=== PATIENT | male | born 1965 | race Caucasian/White ===

== ENCOUNTER → 2016-09-04 | Outpatient (CLI) | payer OTHER ==
[~2016-09-04] MED LIST: CLON1TAB3 PO; GEMF600T3 PO; KLONOPIN PO; LEVO75TA5 PO; LEVO88TA22 PO; MULT-506 PO; OLAN10TA11 PO; PRLSR20 PO; UNABLE
[2016-09-04 12:31] LABS: CALCIUM 9.5 mg/dl (8.5-10.1)
[2016-09-04 12:37] LABS: BLOOD UREA NITROGEN 10 mg/dl (7-18); BUN/CREATININE RATIO 9.4 (10-20); CARBON DIOXIDE 25 mmol/L (21-32); CHLORIDE 106 mmol/L (98-107); CHOLESTEROL 167 mg/dl (0-200); GLUCOSE 102 mg/dl (70-99); SODIUM 139 mmol/L (136-145)
[2016-09-04 12:47] LABS: CHOLESTEROL/HDL RATIO 5.8; HDL CHOLESTEROL 29 mg/dl; LDL CHOLESTEROL CALCULATED 77 mg/dl; TRIGLYCERIDES 303 mg/dl (0-150); VERY LOW DENSITY LIPOPROT CALC 61 mg/dl
== END | disposition home or self-care (01) ==
LOC: C.LABPVFM 08:54
PROVIDERS: ATTEND Nurse Practitioner
DX: E78.2 Mixed hyperlipidemia (principal); E03.9 Hypothyroidism, unspecified

== ENCOUNTER 2016-12-17 17:23 | Emergency (ER) | payer OTHER ==
[~2016-12-17] VITALS: Ht 177.8 cm; Wt 112.0 kg
[~2016-12-17 17:23] MED LIST changes: -CLON1TAB3 PO; -LEVO75TA5 PO
[2016-12-17 17:26] VITALS: TEMP 36.4; Ht 177.8 cm; Wt 112.0 kg
--- NOTE | 2016-12-17 17:46 | EMERGENCY ROOM VISIT NOTE ---
History Report prepared by Scribe: Lisset Grady Under the Supervision of: Dr. Rc Sinclair M.D. First contact with patient: 17:32 Chief Complaint: CARDIAC ASSESSMENT Stated Complaint: CHEST PAIN History of Present Illness The patient is a 51 year old male who presents to the Emergency Room with complaints of intermittent chest pain for the past 1 month. He is accompanied by his Mother. He reports last month he was mowing his lawn when his pain first started. He rates his current discomfort as a 1/10 and notes it radiates into his left arm. The pain usually lasts for "a couple of minutes". Two days ago, he experienced a headache. Earlier today, the patient was mowing his lawn when his pain came back. He saw his PCP, Dr. Dodd at [facility], this afternoon and after getting a chest X-Ray and EKG, he was referred to the ED for further evaluation. He is a non-smoker but states he does use chewing tobacco. He denies any recent shortness of breath, jaw pain, back pain, nausea, vomiting, or pain or swelling in his legs. He denies any recent traumatic injuries or falls. The patient's Mother reports there is a family history of bypass surgery and heart disease in his Father. 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 A total of 10 systems reviewed and were otherwise negative. Past Medical & Surgical Medical Problems: (1) Hyperlipemia Old medical records were reviewed. Nurse's notes were reviewed and I agree with. Family History Coronary artery disease in father Heart disease Social History Smoking Status: Never Smoker Smokeless Tobacco Use: Yes Alcohol Use: none Drug Use: none Marital Status: single Housing Status: lives with family Occupation Status: unemployed Current/Historical Medications Scheduled Clonazepam (Klonopin), 1 MG PO HS Gemfibrozil (Lopid), 600 MG PO BID Levothyroxine Sodium (Levothyroxine Sodium), 1 TAB PO DAILY Multivitamin (Multivitamin), 1 TAB PO DAILY Olanzapine (Zyprexa), 10 MG PO HS Omeprazole (Prilosec), 20 MG PO DAILY Allergies Coded Allergies: Aspirin (Unverified Allergy, Unknown, UNKNOWN, 12/17/16) Physical Exam Vital Signs Date Time Temp Pulse Resp B/P (MAP) Pulse Ox O2 Delivery O2 Flow Rate FiO2 12/17/16 20:26 86 18 132/94 93 Room Air 12/17/16 18:30 89 20 127/88 94 12/17/16 18:00 88 20 135/91 90 12/17/16 17:52 90 29 126/90 92 Room Air 12/17/16 17:44 91 12/17/16 17:26 36.4 98 20 118/87 96 Physical Exam General: The patient is a non-ill appearing middle aged male. Well developed, well nourished in no acute distress, breathing comfortably on room air. Normal speech HEENT: Normal cephalic atraumatic. Pupils are equal round and reactive to light. Extraocular movements are intact. Oropharynx is pink with moist mucous membranes. No swelling of the mouth lips or tongue. Neck: Supple with a midline trachea. No meningeal signs or stiffness, no JVD or bruits. No Stridor. Chest: Clear to auscultation bilaterally. No wheezes or rhonchi. No increased work of breathing. Heart: regular rate and rhythm. Abdomen: Soft nontender, nondistended without rebound guarding or rigidity. Extremities: No cyanosis clubbing or edema. No calf tenderness or assymetry Spine/Back. Non tender to palpation. No CVA tenderness Skin: Good turgor without rashes. Neurologic exam: Cranial nerves two through 12 are intact. Motor and sensation are intact and symmetrical throughout. Medical Decision & Procedures ER Provider Diagnostic Interpretation: Radiology results as stated below per my review and radiologist interpretation: CHEST 2 VIEWS ROUTINE CLINICAL HISTORY: MIXED HYPERLIPIDEMIA CHEST AND LEFT ARM PAIN COMPARISON STUDY: 07/13/2015 FINDINGS: The heart is borderline enlarged. There is no failure. There is no lobar consolidation. There are no pleural effusions. There is minor left basilar atelectasis/scarring. IMPRESSION: No active disease in the chest. Electronically signed by: Shade Rivas M.D. 12/17/2016 3:57 PM Laboratory Results 12/17/16 17:50 Red Blood Count 5.04, Mean Corpuscular Volume 92.7, Mean Corpuscular Hemoglobin 31.2, Mean Corpuscular Hemoglobin Concent 33.6, Mean Platelet Volume 9.6, Neutrophils (%) (Auto) 65.4, Lymphocytes (%) (Auto) 26.7, Monocytes (%) (Auto) 7.0, Eosinophils (%) (Auto) 0.0, Basophils (%) (Auto) 0.2, Neutrophils # (Auto) 2.81, Lymphocytes # (Auto) 1.15, Monocytes # (Auto) 0.30, Eosinophils # (Auto) 0.00, Basophils # (Auto) 0.01 12/17/16 17:50 Test 12/17/16 17:50 12/17/16 17:55 White Blood Count 4.30 K/uL (4.8-10.8) Red Blood Count 5.04 M/uL (4.7-6.1) Hemoglobin 15.7 g/dL (14.0-18.0) Hematocrit 46.7 % (42-52) Mean Corpuscular Volume 92.7 fL (80-100) Mean Corpuscular Hemoglobin 31.2 pg (25-34) Mean Corpuscular Hemoglobin Concent 33.6 g/dl (32-36) Platelet Count 215 K/uL (130-400) Mean Platelet Volume 9.6 fL (7.4-10.4) Neutrophils (%) (Auto) 65.4 % Lymphocytes (%) (Auto) 26.7 % Monocytes (%) (Auto) 7.0 % Eosinophils (%) (Auto) 0.0 % Basophils (%) (Auto) 0.2 % Neutrophils # (Auto) 2.81 K/uL (1.4-6.5) Lymphocytes # (Auto) 1.15 K/uL (1.2-3.4) Monocytes # (Auto) 0.30 K/uL (0.11-0.59) Eosinophils # (Auto) 0.00 K/uL (0-0.5) Basophils # (Auto) 0.01 K/uL (0-0.2) RDW Standard Deviation 48.8 fL (36.4-46.3) RDW Coefficient of Variation 14.4 % (11.5-14.5) Immature Granulocyte % (Auto) 0.7 % Immature Granulocyte # (Auto) 0.03 K/uL (0.00-0.02) Anion Gap 8.0 mmol/L (3-11) Est Creatinine Clear Calc Drug Dose 82.4 ml/min Estimated GFR () 72.2 Estimated GFR (Non- 62.3 BUN/Creatinine Ratio 12.0 (10-20) Calcium Level 9.0 mg/dl (8.5-10.1) Total Bilirubin 0.6 mg/dl (0.2-1) Direct Bilirubin 0.1 mg/dl (0-0.2) Aspartate Amino Transf (AST/SGOT) 51 U/L (15-37) Alanine Aminotransferase (ALT/SGPT) 57 U/L (12-78) Alkaline Phosphatase 52 U/L (45-117) Total Creatine Kinase 1129 U/L (39-308) Creatine Kinase MB 3.2 ng/ml (0.5-3.6) Creatine Kinase MB Ratio 0.3 (0-3.0) Troponin I < 0.015 ng/ml (0-0.045) Total Protein 8.2 gm/dl (6.4-8.2) Albumin 3.9 gm/dl (3.4-5.0) Lipase 200 U/L (73-393) Thyroid Stimulating Hormone (TSH) 2.730 uIu/ml (0.300-4.500) Bedside Troponin I < 0.030 ng/ml (0-0.045) NH-Hqn-L-Type Natriuretic Peptide < 15 pg/ml (0-900) Laboratory studies as stated above per my review. ECG Indication: chest pain Rate (beats per minute): 83 Rhythm: normal sinus Findings: no acute ischemic change, no ectopy, other (poor baseline) Change: no significant change (no significant change when compared to EKG performed at patient's PCP's office earlier today) Change: EKG performed at patient's PCP's office earlier today: Normal sinus rhythm, rate of 87, no acute ischemic changes, no ectopy. ED Course 173: Past medical records reviewed. The patient was evaluated in room C8, and a complete history and physical examination were performed. 1849: I reevaluated the patient. He appears comfortable. I discussed his results and my recommendation he remain in the hospital for further evaluation and management and he and his Mother verbalized complete understanding and agreement. 1913: I discussed the patients case with Dr. Armstrong, [facility] Hospitalist. The patient will be further evaluated. 1999: I spoke with Dr. Armstrong. He feels the patient is stable enough to be discharged home. I will have case management set up an outpatient stress test. 2009: I reevaluated the patient. He is feeling well. I discussed his discharge instructions and he and his Mother verbalized complete understanding and agreement. Medical Decision The differential diagnoses considered include ACS, arrhythmia, GERD, musculoskeletal pain, CHF and electrolyte or metabolic abnormality. This patient comes in as described above. He's been having intermittent chest pain his symptoms are vague and intermittent. He is pain-free at present. EKG in the doctor's office as well as here of both nonischemic appearing. Chest x- ray done in his doctor's office was unremarkable has nothing to suggest congestive heart failure, pneumonia, or pneumothorax. He is allergic to aspirin although is not sure what his allergy is. IV access established multiple blood testing was obtained including cardiac enzymes. He was reassessed frequently. He has remained stable emergency department. His EKG is nonischemic appearing and I reviewed the only office as well. His troponin is not elevated. His CK was elevated however the CK-MB fraction was not. He does a lot of weight lifting. He does not have chest pain during weight lifting this may be more muscular. He has no acute electrolyte or metabolic abnormalities. I did consult Dr. Haq to see him in the emergency department for possible observation. Dr. Fontaine feels he can go home and has asked the case management team to arrange an outpatient stress test the patient's family were happy with this I think this is reasonable. I think at this point is unlikely cardiac but I still think we need to continue to rule is out the patient strongly desires to go home and Dr. Fontaine feels he does not need to be admitted. The patient was discharged home in our case management team will follow up with him and arrange a stress test. Medication Reconcilliation Current Medication List: was personally reviewed by me Blood Pressure Screening Patient's blood pressure: Normal blood pressure Blood pressure disposition: Did not require urgent referral Consults Time Called: 1909 Consulting Physician: Dr. Armstrong [facility] Hospitalist Returned Call: 1913 I discussed the patients case with Dr. Armstrong [facility] Hospitalist. The patient will be further evaluated. Impression Primary Impression: Precordial chest pain Scribe Attestation The scribe's documentation has been prepared under my direction and personally reviewed by me in its entirety. I confirm that the note above accurately reflects all work, treatment, procedures, and medical decision making performed by me. Departure Information Dispostion Home / Self-Care Referrals No Doctor, Assigned (PCP) Patient Instructions My [facility] Additional Instructions Rest. Follow-up with your doctor tomorrow or on Wednesday. Our case management team will help to get an appointment for stress test. Return to the ER if symptoms worsen in anyway or you have increasing pain or problems
[2016-12-17 17:57] LABS: BASO % 0.2 %; BASO ABS # 0.01 K/uL (0-0.2); COMPLETE YES; HEMATOCRIT 46.7 % (42-52); IG% 0.7 %; LYMPH % 26.7 %; LYMPH ABS # 1.15 K/uL (1.2-3.4); MEAN CELL VOLUME 92.7 fL (80-100); MEAN CORPUSCULAR HEMOGLOBIN 31.2 pg (25-34); MEAN CORPUSCULAR HGB CONC 33.6 g/dl (32-36); MEAN PLATELET VOLUME 9.6 fL (7.4-10.4); NEUT % 65.4 %; PLATELET COUNT 215 K/uL (130-400); RED BLOOD COUNT 5.04 M/uL (4.7-6.1)
[2016-12-17] MEDS ORDERED: CLON1TAB3 PO (18:05)
[2016-12-17] MEDS ORDERED: LEVO75TA5 PO (18:05)
[2016-12-17 18:14] LABS: POINT OF CARE PRO-BNP < 15 pg/ml (0-900); POINT OF CARE TROPONIN I < 0.030 ng/ml (0-0.045)
[2016-12-17 18:28] LABS: ALT/SGPT 57 U/L (12-78); AST/SGOT 51 U/L (15-37); BLOOD UREA NITROGEN 16 mg/dl (7-18); CARBON DIOXIDE 25 mmol/L (21-32); CHLORIDE 107 mmol/L (98-107); GLUCOSE 100 mg/dl (70-99); POTASSIUM 3.9 mmol/L (3.5-5.1); SODIUM 140 mmol/L (136-145)
[2016-12-17 18:42] LABS: ALKALINE PHOSPHATASE 52 U/L (45-117); CKMB/CK RATIO 0.3 (0-3.0)
[2016-12-17 20:26] VITALS: BP 132/94; PULSE 86; O2SAT 93
--- NOTE | 2016-12-17 20:44 | Medical Consult ---
Consultation Date of Consultation: Dec 17, 2016. Attending Physician: History of Present Illness 51 y/o M Hx schizophrenia, GERD, hypothyroidism. Pt had an episode of abdominal pain followed by central CP lasting around 2 min. This occurred while he was mowing his lawn. The pt describes an identical episode one month. He presented to his PCP as a result and was referred to the ER for further workup. He denies N/V, diaphoresis or SOB accompanying his pain. Past Medical/Surgical History Medical Problems: (1) Precordial chest pain 2) Hypothyroidism 3) Paranoid schizophrenia Family History Coronary artery disease in father Heart disease Social History Smoking Status: Never Smoker Smokeless Tobacco Use: Yes Drug Use: none Marital Status: single Housing Status: lives with family Occupation Status: unemployed Allergies Coded Allergies: Aspirin (Unverified Allergy, Unknown, UNKNOWN, 12/17/16) Review of Systems Constitutional: No fever, No chills, No sweats Eyes: No worsening of vision ENT: No hearing loss, No nasal symptoms Respiratory: No cough, No sputum, No wheezing, No shortness of breath Cardiovascular: + chest pain, No orthopnea, No PND Abdomen: + pain, No nausea, No vomiting Musculoskeletal: No joint pain Genitourinary - Male: No hematuria Neurologic: No memory loss Psychiatric: No depression symptoms Endocrine: No fatigue Hematologic / Lymphatic: No abnormal bleeding/bruising Integumentary: No rash Allergic / Immunologic: No environmental allergies Physical Exam Date Time Temp Pulse Resp B/P (MAP) Pulse Ox O2 Delivery O2 Flow Rate FiO2 12/17/16 18:30 89 20 127/88 94 12/17/16 18:00 88 20 135/91 90 12/17/16 17:52 90 29 126/90 92 Room Air 12/17/16 17:44 91 12/17/16 17:26 36.4 98 20 118/87 96 General Appearance: WD/WN Head: normocephalic Eyes: normal inspection ENT: normal ENT inspection Neck: supple Respiratory/Chest: chest non-tender, lungs clear, normal breath sounds Cardiovascular: regular rate, rhythm, no edema, no gallop, no JVD, no murmur Abdomen/GI: normal bowel sounds, non tender, soft Back: normal inspection, no CVA tenderness Extremities/Musculoskelatal: normal inspection, no calf tenderness, normal capillary refill, no pedal edema, normal range of motion Neurologic/Psych: digital forensic analyst II-XII nml as tested, no motor/sensory deficits, alert, normal mood/affect, normal reflexes, oriented x 3 Skin: normal color, warm/dry, no rash Laboratory Results Last 24 Hours Test 12/17/16 17:50 12/17/16 17:55 White Blood Count 4.30 K/uL Red Blood Count 5.04 M/uL Hemoglobin 15.7 g/dL Hematocrit 46.7 % Mean Corpuscular Volume 92.7 fL Mean Corpuscular Hemoglobin 31.2 pg Mean Corpuscular Hemoglobin Concent 33.6 g/dl Platelet Count 215 K/uL Mean Platelet Volume 9.6 fL Neutrophils (%) (Auto) 65.4 % Lymphocytes (%) (Auto) 26.7 % Monocytes (%) (Auto) 7.0 % Eosinophils (%) (Auto) 0.0 % Basophils (%) (Auto) 0.2 % Neutrophils # (Auto) 2.81 K/uL Lymphocytes # (Auto) 1.15 K/uL Monocytes # (Auto) 0.30 K/uL Eosinophils # (Auto) 0.00 K/uL Basophils # (Auto) 0.01 K/uL RDW Standard Deviation 48.8 fL RDW Coefficient of Variation 14.4 % Immature Granulocyte % (Auto) 0.7 % Immature Granulocyte # (Auto) 0.03 K/uL Sodium Level 140 mmol/L Potassium Level 3.9 mmol/L Chloride Level 107 mmol/L Carbon Dioxide Level 25 mmol/L Anion Gap 8.0 mmol/L Blood Urea Nitrogen 16 mg/dl Creatinine 1.30 mg/dl Est Creatinine Clear Calc Drug Dose 82.4 ml/min Estimated GFR () 72.2 Estimated GFR (Non- 62.3 BUN/Creatinine Ratio 12.0 Random Glucose 100 mg/dl Calcium Level 9.0 mg/dl Total Bilirubin 0.6 mg/dl Direct Bilirubin 0.1 mg/dl Aspartate Amino Transf (AST/SGOT) 51 U/L Alanine Aminotransferase (ALT/SGPT) 57 U/L Alkaline Phosphatase 52 U/L Total Creatine Kinase 1129 U/L Creatine Kinase MB 3.2 ng/ml Creatine Kinase MB Ratio 0.3 Troponin I < 0.015 ng/ml Total Protein 8.2 gm/dl Albumin 3.9 gm/dl Lipase 200 U/L Thyroid Stimulating Hormone (TSH) 2.730 uIu/ml Bedside Troponin I < 0.030 ng/ml HL-Mtb-O-Type Natriuretic Peptide < 15 pg/ml Assessment & Plan 51 y/o M Hypothyroidism, schizophrenia, GERD - presents following abdominal and CP lasting 2 min 1) CP - EKG and trop are WNL - pt states he feels well- we will repeat a trop and if neg, will schedule outpt stress. Recommend ASA and avoidance of strenuous exercise pending his stress test. 2) Schizophrenia - cont current meds - follows regularly with psych 3) Hypothyroidism - con Synthroid 4) GERD - cont Omeprazole - would recommend GI F/U if card etiology is ruled out. Total time for this consult including review of labs, meds, EKG - discussion wth pt and ER attending - 33 min
== END 2016-12-17 20:47 | disposition home or self-care (01) ==
LOC: C.EDB 17:24 → C.EDC 20:47
DX: R07.2 Precordial pain (principal); E78.5 Hyperlipidemia, unspecified; Z79.899 Other long term (current) drug therapy; Z88.6 Allergy status to analgesic agent; Z82.49 Family history of ischemic heart disease and other diseases of the circulatory system

== ENCOUNTER → 2016-12-17 | Outpatient (CLI) | payer OTHER ==
--- NOTE | 2016-12-17 15:58 | DIAGNOSTIC IMAGING REPORT ---
CHEST 2 VIEWS ROUTINE CLINICAL HISTORY: MIXED HYPERLIPIDEMIA CHEST AND LEFT ARM PAIN COMPARISON STUDY: 07/13/2015 FINDINGS: The heart is borderline enlarged. There is no failure. There is no lobar consolidation. There are no pleural effusions. There is minor left basilar atelectasis/scarring.[ IMPRESSION: No active disease in the chest. Electronically signed by: Shade Rvias M.D. 12/17/2016 3:57 PM Dictated Date/Time: 12/17/2016 3:57 PM
== END | disposition home or self-care (01) ==
LOC: C.RADPV 15:37
PROVIDERS: ATTEND Family Medicine
DX: E78.2 Mixed hyperlipidemia (principal)

== ENCOUNTER → 2017-09-03 | Outpatient (CLI) | payer OTHER ==
[~2017-09-03] MED LIST changes: +CLON1TAB3 PO; -KLONOPIN PO; +LEVO75TA5 PO; -LEVO88TA22 PO; -UNABLE
[2017-09-03 14:08] LABS: BLOOD UREA NITROGEN 12 mg/dl (7-18); CALCIUM 9.3 mg/dl (8.5-10.1); CARBON DIOXIDE 25 mmol/L (21-32); CREATININE 1.13 mg/dl (0.60-1.40); GLUCOSE 115 mg/dl (70-99); POTASSIUM 4.1 mmol/L (3.5-5.1); SODIUM 136 mmol/L (136-145)
== END | disposition home or self-care (01) ==
LOC: C.LABPVFM 10:08
PROVIDERS: ATTEND Nurse Practitioner
DX: E03.9 Hypothyroidism, unspecified (principal); E78.2 Mixed hyperlipidemia